=== PATIENT | female | born 2005 ===

== ENCOUNTER 2024-04-22 11:08 | Outpatient (CLI) | payer MEDICAID, SELFPAY ==
--- NOTE | 2024-04-22 11:18 | XR_ITS ---
WS: [id number] XR thoracic spine 2V [id number] REASON FOR EXAM: Back Pain FINDINGS: Normal thoracic spine curvatures. No vertebral body abnormality. Intervertebral disc spaces are intact. XR/XR thoracic spine 2V [id number] IMPRESSION: No significant abnormality.
== END 2024-04-22 11:09 | disposition home or self-care (01) ==
LOC: RAD 11:14
PROVIDERS: PCP Nurse Practitioner Family; Visit Provider Nurse Practitioner Family
DX: M54.6 Pain in thoracic spine (principal)
CPT/HCPCS: 72070